=== PATIENT | male | born 1965 | race African-American/Black ===

== ENCOUNTER 2016-05-09 11:07 | Emergency (ER) | payer MEDICARE ==
[2016-05-09] MEDS ORDERED: PREDNISONE 20 MG TABLET PO ONE (11:22)
[2016-05-09] MEDS ORDERED: IPRATROPIUM/ALBUTEROL 0.5-2.5 MG/3 ML AMPUL NEB ONE ×2 (11:22→11:41)
--- NOTE | 2016-05-09 11:22 | ER Document Report ---
ED Medical Screen (RME) - General Stated Complaint: SHORTNESS OF BREATH,BACK PAIN Time seen by provider: 11:20 Mode of Arrival: Ambulatory Information source: Patient Notes: 51 yo male c/o wheezing, shortness of breath, hx asthma, sx onset since the holidays. Has nebulizer at home which is not help. also c/o right flank pain intermittently when he waks up in the morning. TRAVEL OUTSIDE OF THE [place] IN LAST 30 DAYS: No - Related Data Allergies/Adverse Reactions: azithromycin Allergy (Verified 05/09/16 11:20) Past Medical History - Past Medical History Cardiac Medical History: Reports: Hx Atrial Fibrillation, Hx Hypercholesterolemia, Hx Hypertension Pulmonary Medical History: Reports: Hx Asthma Physical Exam - Vital signs Vitals: Temp Pulse Resp BP Pulse Ox 98.0 F 64 18 103/69 98 05/09/16 11:18 05/09/16 11:18 05/09/16 11:18 05/09/16 11:18 05/09/16 11:18 Course - Vital Signs Vital signs: Temp Pulse Resp BP Pulse Ox 98.0 F 64 18 103/69 98 05/09/16 11:18 05/09/16 11:18 05/09/16 11:18 05/09/16 11:18 05/09/16 11:18
--- NOTE | 2016-05-09 11:52 | ER Document Report ---
ED General - General Chief Complaint: Back Pain Stated Complaint: SHORTNESS OF BREATH,BACK PAIN Time seen by provider: 11:49 Mode of Arrival: Ambulatory Information source: Patient Notes: 51-year-old male with a one-week history of wheezing and dyspnea on exertion and shortness of breath cough productive of yellow sputum. He reports patient was having breathing difficulty during the night that was keeping his wake and she insisted that he come in the hospital today. He also reports proximal one to 2 weeks of sharp pain in the right lower back that is intermittent. He also reports occasional urinary urgency and frequency and speculates that he might have urinary tract infection. He denies dysuria, fever, chills, nausea, vomiting, chest pain, or abdominal pain. He reports history of atrial fibrillation but says he's routinely in sinus rhythm since being started on Tikosyn by Dr. Mccray in [place]. He reports taking Eliquis but no other anticoagulation. Patient reports history of asthma and reports his current symptoms feel similar to that. He denies orthopnea or swelling to extremities. Physical Exam: General: Alert, appears well. HEENT: Normocephalic. Atraumatic. PERRLA. Extraocular movements intact. Oropharynx clear. Neck: Supple. Non-tender. Respiratory: No respiratory distress. He rhonchi bilaterally breath sounds equal no accessory muscle use Cardiovascular: Regular rate and rhythm. PMI not displaced Abdominal: Normal Inspection. Soft, non-tender. No distension. Normal Bowel Sounds. Back: Non-tender. No deformity or step off. Extremities: Moves all four extremities. 2+ pulses all extremities no edema no Homans sign bilaterally Neurological: Answers questions appropriate limitation clear speech clear was all extremities well. Psychological: Normal affect. Normal Mood. Skin: Warm. Dry. Normal color. TRAVEL OUTSIDE OF THE [place] IN LAST 30 DAYS: No - Related Data Allergies/Adverse Reactions: azithromycin Allergy (Verified 05/09/16 11:20) Past Medical History - General Information source: Patient - Social History Smoking Status: Never Smoker Chew tobacco use (# tins/day): No Frequency of alcohol use: None Drug Abuse: None Family History: CAD Patient has suicidal ideation: No Patient has homicidal ideation: No - Past Medical History Cardiac Medical History: Reports: Hx Atrial Fibrillation, Hx Hypercholesterolemia, Hx Hypertension Pulmonary Medical History: Reports: Hx Asthma Review of Systems - Review of Systems Constitutional: denies: Chills, Fever EENT: denies: Ear pain, Throat pain Cardiovascular: denies: Chest pain, Syncope, Dizziness Respiratory: Cough, Short of breath Gastrointestinal: denies: Abdominal pain, Diarrhea, Nausea, Vomiting Genitourinary: See HPI Musculoskeletal: Back pain Hematologic/Lymphatic: denies: Swollen glands Neurological/Psychological: denies: Weakness, Numbness Physical Exam - Vital signs Vitals: Temp Pulse Resp BP Pulse Ox 98.0 F 64 18 103/69 98 05/09/16 11:18 05/09/16 11:18 05/09/16 11:18 05/09/16 11:18 05/09/16 11:18 Course - Re-evaluation Re-evalutation: 05/09/16 13:41 Reevaluation after 2 nebulizer treatments and oral steroids shows clear lung mcgee bilaterally. Given the cough productive of yellow sputum for the past week believe there is a component of bronchitis and he will be discharged on Ceftin 500 twice a day for 10 days. Patient is allergic to Zithromax and 2 elective void for quinolones given his use of Tikosyn. He'll also receive Medrol Dosepak and asked to follow with his physician Dr. Callahan. 05/09/16 13:42 - Vital Signs Vital signs: Temp Pulse Resp BP Pulse Ox 98.0 F 64 18 103/69 98 05/09/16 11:18 05/09/16 11:18 05/09/16 11:18 05/09/16 11:18 05/09/16 11:18 Discharge - Discharge Clinical Impression: Acute bronchitis Qualifiers: Bronchitis organism: unspecified organism Qualified Code(s): J20.9 - Acute bronchitis, unspecified Condition: Stable Disposition: HOME, SELF-CARE Additional Instructions: Bronchitis You have acute bronchitis. This disease is an infection or inflammation of the air passageways in your lungs. Symptoms usually include cough, low grade fever, shortness of breath, and wheezing. The cough usually persists for a couple of weeks. Most cases of bronchitis get better without antibiotics. We prescribe antibiotics when we believe bacteria are damaging your airways, or if there's high risk the bronchitis will worsen into pneumonia. Increase your fluid intake. A cool mist humidifier may make your lungs more comfortable. An expectorant (cough medicine that loosens phlegm) can help. If you smoke, STOP!!! Recovery from bronchitis can be somewhat slow, but you should see improvement within a day or two. Repeated episodes of bronchitis may result in lung damage -- for example, chronic bronchitis, recurrent pneumonias, or emphysema. Call the doctor if you develop increasing fever, shortness of breath, chest pain, bloody sputum, or otherwise worsen. If you have not improved at all after several days, contact the physician. See Dr. Callahan next week for recheck Prescriptions: Cefuroxime Axetil [Ceftin 500 mg Tablet] 1 tab PO BID #20 tablet Methylprednisolone [Medrol Dosepack (4 mg/Tab) 21 Tab/Dosepak] 4 mg PO ASDIR PRN #21 tab.ds.pk PRN Reason:
[2016-05-09 13:10] LABS: APPEARANCE,URINE CLEAR; BILIRUBIN,URINE NEGATIVE (NEGATIVE); GLUCOSE, URINE NEGATIVE (NEGATIVE); KETONES,URINE NEGATIVE (NEGATIVE); LEUKOCYTE ESTERASE,URINE NEGATIVE (NEGATIVE); NITRITE,URINE NEGATIVE (NEGATIVE); PROTEIN,URINE NEGATIVE (NEGATIVE); URINE SPECIFIC GRAVITY 1.011; UROBILINOGEN,URINE NEGATIVE mg/dL (<2.0)
[2016-05-09 13:56] VITALS: BP 101/66
--- NOTE | 2016-05-09 22:58 | EKG REPORT ---
SEVERITY:- ABNORMAL ECG - SINUS RHYTHM FIRST DEGREE AV BLOCK LEFT ANTERIOR FASCICULAR BLOCK LATERAL INFARCT, ANTEROLATERAL INFARCT, AGE INDETERMINATE BORDERLINE T ABNORMALITIES, INFERIOR LEADS : Confirmed by: Kelly Sommers 09-May-2016 22:58:12
== END 2016-05-09 13:54 | disposition home or self-care (01) ==
LOC: ER 11:07
DX: J20.9 Acute bronchitis, unspecified (principal); M54.9 Dorsalgia, unspecified; R06.02 Shortness of breath; I48.91 Unspecified atrial fibrillation; E78.00 Pure hypercholesterolemia, unspecified; I10 Essential (primary) hypertension; Z88.3 Allergy status to other anti-infective agents
CPT/HCPCS: 93005; 94640 ×2; 99285; 87086; 81001; 71020; 93010; A9270 ×2; J7512; J7620

== ENCOUNTER 2017-03-21 11:58 | Emergency (ER) | payer OTHER, MEDICARE ==
[2017-03-21] MEDS ORDERED: GUAIFENESIN/D-METHORPHAN (200-20 MG) SYRUP 10 ML PO ONE (12:57)
[2017-03-21] MEDS ORDERED: METHYLPREDNISOLONE INJ 125 MG/2 ML SDV IM ONE (12:57)
[2017-03-21] MEDS ORDERED: IPRATROPIUM/ALBUTEROL 0.5-2.5 MG/3 ML AMPUL NEB ONE (12:57)
--- NOTE | 2017-03-21 13:00 | ER Document Report ---
ED General - General Chief Complaint: Edema Stated Complaint: COUGHING/ DIFFICULT BREATHING Time Seen by Provider: 03/21/17 12:27 Mode of Arrival: Ambulatory Information source: Patient Notes: Patient is a 51-year-old male with a history of asthma and congestive heart failure who presents to the ER today for shortness of breath 4 days that is worsening. Patient admits to productive cough and fevers at home. He also admits to bilateral lower extremity increase in swelling. He states that he does take 80 mg of Lasix and usually takes metolazone as well to "get the fluid off" but states that he is out of metolazone. He denies any chest pain. TRAVEL OUTSIDE OF THE [place] IN LAST 30 DAYS: No - Related Data Allergies/Adverse Reactions: azithromycin Allergy (Verified 03/21/17 12:01) Home Medications: Current Home Medications Apixaban [Eliquis 5 mg Tablet] 1 tab PO BID 03/21/17 [History] Carvedilol 25 mg PO DAILY 03/21/17 [History] Dofetilide [Tikosyn 500 Mcg Capsule] 500 mcg PO BID 03/21/17 [History] Furosemide [Lasix] 40 mg PO DAILY 03/21/17 [History] Metolazone 5 mg PO PRN PRN 03/21/17 [History] Montelukast Sodium 10 mg PO QPM 03/21/17 [History] Sacubitril/Valsartan [Entresto 24 mg-26 mg Tablet] 1 each PO BID 03/21/17 [ History] Past Medical History - General Information source: Patient - Social History Smoking Status: Never Smoker Chew tobacco use (# tins/day): No Frequency of alcohol use: None Drug Abuse: None Family History: CAD Patient has suicidal ideation: No Patient has homicidal ideation: No - Past Medical History Cardiac Medical History: Reports: Hx Atrial Fibrillation, Hx Hypercholesterolemia, Hx Hypertension Pulmonary Medical History: Reports: Hx Asthma Renal/ Medical History: Denies: Hx Peritoneal Dialysis Past Surgical History: Reports: Hx Cardiac Surgery - pacemaker, Hx Orthopedic Surgery - Right knee Review of Systems - Review of Systems Constitutional: See HPI EENT: See HPI Cardiovascular: See HPI Respiratory: See HPI Gastrointestinal: No symptoms reported Genitourinary: No symptoms reported Male Genitourinary: No symptoms reported Musculoskeletal: No symptoms reported Skin: See HPI Hematologic/Lymphatic: No symptoms reported Neurological/Psychological: No symptoms reported Physical Exam - Vital signs Vitals: Temp Pulse Resp BP Pulse Ox 98.9 F 87 18 122/87 H 98 03/21/17 12:01 03/21/17 12:01 03/21/17 12:01 03/21/17 12:01 03/21/17 12:01 - Notes Notes: PHYSICAL EXAMINATION: GENERAL: Well-appearing and in no acute distress. HEAD: Atraumatic, normocephalic. EYES: Pupils equal round and reactive to light, extraocular movements intact, sclera anicteric, conjunctiva are normal. ENT: ear canals without erythema or foreign body, TMs pearly islas with good bony landmarks, nares patent, oropharynx clear without exudates. Moist mucous membranes. Airway patent NECK: Normal range of motion, supple without lymphadenopathy LUNGS: mild wheezes in bilateral lower lung mcgee, no rales or rhonchi. HEART: Regular rate and rhythm without murmurs ABDOMEN: Soft, no tenderness. No guarding, no rebound BACK: no vertebral tenderness, normal ROM GI/: no CVA tenderness EXTREMITIES: Normal range of motion, 1+ pitting edema bilateral lower extremities. No cyanosis. NEUROLOGICAL: Cranial nerves grossly intact. Normal sensory/motor exams. PSYCH: Normal mood, normal affect. SKIN: Warm, Dry, normal turgor, no rashes or lesions noted Course - Re-evaluation Re-evalutation: 03/21/17 17:57 patient was given breathing treatment here and did improve, I will provide him antibiotic, cough medication and he is refill of metolazone for the pitting edema to his lower extremities. He was given a Solu-Medrol injection here for his wheezing. - Vital Signs Vital signs: Temp Pulse Resp BP Pulse Ox 98.2 F 71 16 116/79 99 03/21/17 13:49 03/21/17 13:49 03/21/17 13:49 03/21/17 13:49 03/21/17 13:49 Discharge - Discharge Clinical Impression: Edema extremities Asthma exacerbation Qualifiers: Asthma severity: unspecified severity Asthma persistence: unspecified Qualified Code(s): J45.901 - Unspecified asthma with (acute) exacerbation Condition: Stable Disposition: HOME, SELF-CARE Additional Instructions: Return immediately for any new or worsening symptoms. Follow up with primary care provider, call tomorrow to make followup appointment. Prescriptions: Hydrocodone Bit/Homatropine [Hycodan Syrup 5-1.5 mg/5 ml Ud Cup] 5 ml PO Q4HP PRN #120 ml PRN Reason: Doxycycline Hyclate 100 mg PO BID #14 tablet Metolazone 5 mg PO PRN PRN #15 tablet PRN Reason:
--- NOTE | 2017-03-21 13:01 | RADIOLOGY REPORT (SQ) ---
EXAM DESCRIPTION: CHEST PA/LAT COMPLETED DATE/TIME: 03/21/2017 12:35 pm REASON FOR STUDY: cough COMPARISON: Chest films 11/17/2015, 05/09/2016 EXAM PARAMETERS: NUMBER OF VIEWS: two views TECHNIQUE: Digital Frontal and Lateral radiographic views of the chest acquired. RADIATION DOSE: NA LIMITATIONS: none FINDINGS: LUNGS AND PLEURA: No opacities, masses or pneumothorax. No pleural effusion. MEDIASTINUM AND HILAR STRUCTURES: No masses or contour abnormalities. HEART AND VASCULAR STRUCTURES: Mild stable cardiomegaly. BONES: No acute findings. HARDWARE: Left-sided single lead pacemaker OTHER: No other significant finding. IMPRESSION: Stable mild cardiomegaly. Single lead pacemaker. No acute infiltrates. No pleural effusion TECHNICAL DOCUMENTATION: JOB ID: [id number] [employer]- All Rights Reserved
[2017-03-21 13:59] VITALS: BP 116/79
== END 2017-03-21 13:53 | disposition home or self-care (01) ==
LOC: ER 11:58
DX: R60.0 Localized edema (principal); J45.901 Unspecified asthma with (acute) exacerbation; R05 Cough; R06.02 Shortness of breath; I50.9 Heart failure, unspecified; Z79.899 Other long term (current) drug therapy
CPT/HCPCS: 94640; 99285; 96372; 87804; 71020; J2930; J3490; J7620

== ENCOUNTER 2018-07-08 08:26 | Emergency (ER) | payer OTHER, MEDICARE ==
[2018-07-08] MEDS ORDERED: IPRATROPIUM/ALBUTEROL 0.5-2.5 MG/3 ML AMPUL NEB ONE (09:11)
[2018-07-08] MEDS ORDERED: METHYLPREDNISOLONE INJ 125 MG/2 ML SDV IM ONE (09:11)
--- NOTE | 2018-07-08 09:12 | ER Document Report ---
ED Respiratory Problem - General Chief Complaint: Shortness Of Breath Stated Complaint: FLU SYMPTOMS Time Seen by Provider: 07/08/18 08:49 Mode of Arrival: Ambulatory Information source: Patient Notes: Patient is a 53-year-old male with a history of COPD, CHF who presents to the ER today for shortness of breath, wheezing, productive cough times 2 weeks worsening over the past couple of days. Patient states that he has lost weight and has not had any issues with his CHF, no swelling to the bilateral lower extremities, states that he is borderline diabetic but keeping it under control with diet. He states "I have been doing a lot better." He does have albuterol at home that has been helping, he admits to chills and fever but has not taken his temperature. TRAVEL OUTSIDE OF THE [place] IN LAST 30 DAYS: No - Related Data Allergies/Adverse Reactions: azithromycin Allergy (Verified 03/21/17 12:01) Past Medical History - General Information source: Patient - Social History Smoking Status: Never Smoker Family History: CAD Patient has suicidal ideation: No Patient has homicidal ideation: No - Past Medical History Cardiac Medical History: Reports: Hx Atrial Fibrillation, Hx Congestive Heart Failure, Hx Hypercholesterolemia, Hx Hypertension Pulmonary Medical History: Reports: Hx Asthma Endocrine Medical History: Reports: Hx Diabetes Mellitus Type 2 Renal/ Medical History: Denies: Hx Peritoneal Dialysis Past Surgical History: Reports: Hx Cardiac Surgery - pacemaker, Hx Orthopedic Surgery - Right knee Review of Systems - Review of Systems Constitutional: See HPI EENT: See HPI Cardiovascular: No symptoms reported Respiratory: See HPI Gastrointestinal: No symptoms reported Genitourinary: No symptoms reported Male Genitourinary: No symptoms reported Musculoskeletal: No symptoms reported Skin: No symptoms reported Hematologic/Lymphatic: No symptoms reported Neurological/Psychological: No symptoms reported Physical Exam - Vital signs Vitals: Temp Pulse Resp BP Pulse Ox 98.6 F 66 16 102/62 97 07/08/18 08:32 07/08/18 08:32 07/08/18 08:32 07/08/18 08:32 07/08/18 08:32 - Notes Notes: PHYSICAL EXAMINATION: GENERAL: Mildly ill-appearing, but in no acute distress. HEAD: Atraumatic, normocephalic. EYES: Pupils equal round and reactive to light, extraocular movements intact, sclera anicteric, conjunctiva are normal. ENT: Airway patent, ear canals without erythema or foreign body, TMs pearly islas with good bony landmarks, nares patent, oropharynx clear without exudates. Moist mucous membranes. NECK: Normal range of motion, supple without lymphadenopathy LUNGS: Mild expiratory wheezes, no rales or rhonchi. HEART: Regular rate and rhythm without murmurs ABDOMEN: Soft, no tenderness. No guarding, no rebound BACK: no vertebral tenderness, normal ROM GI/: no CVA tenderness EXTREMITIES: Normal range of motion, no pitting edema. No cyanosis. NEUROLOGICAL: Cranial nerves grossly intact. Normal sensory/motor exams. PSYCH: Normal mood, normal affect. SKIN: Warm, Dry, normal turgor, no rashes or lesions noted Course - Re-evaluation Re-evalutation: 07/08/18 10:39 X-ray negative for sign of pneumonia, patient doing better after breathing treatment here and Solu-Medrol was given IM. Pt will be given abx and cough medication. - Vital Signs Vital signs: Temp Pulse Resp BP Pulse Ox 98.8 F 66 20 102/78 94 07/08/18 10:20 07/08/18 08:32 07/08/18 10:12 07/08/18 10:12 07/08/18 10:12 Discharge - Discharge Clinical Impression: COPD exacerbation Condition: Stable Disposition: HOME, SELF-CARE Additional Instructions: Return immediately for any new or worsening symptoms. Follow up with primary care provider, call tomorrow to make followup appointment. Prescriptions: Hydrocodone Bit/Homatropine [Hycodan Syrup 5-1.5 mg/5 ml Ud Cup] 5 ml PO Q4HP PRN #120 ml PRN Reason: Cefdinir 300 mg PO TID #30 capsule
--- NOTE | 2018-07-08 09:45 | RADIOLOGY REPORT (SQ) ---
EXAM DESCRIPTION: CHEST 2 VIEWS COMPLETED DATE/TIME: 07/08/2018 9:24 am REASON FOR STUDY: cough, wheezing COMPARISON: 03/21/2017 NUMBER OF VIEWS: Two view TECHNIQUE: Frontal and lateral radiographic images of the chest acquired. LIMITATIONS: None. FINDINGS: LUNGS AND PLEURA: Chronic interstitial changes. No evidence of pulmonary edema or pneumon ia. MEDIASTINUM AND HILAR STRUCTURES: Stable heart size and mediastinal structures. HEART AND VASCULAR STRUCTURES: Cardiomegaly. Stable position of defibrillator. SUPPORT DEVICES: See above. BONES: No acute findings. OTHER: No other significant finding. IMPRESSION: No acute findings in the chest. TECHNICAL DOCUMENTATION: JOB ID: [id number] [employer]- All Rights Reserved Reading location - IP/workstation name: [email or web address]
[2018-07-08 10:20] VITALS: BP 102/78
== END 2018-07-08 10:20 | disposition home or self-care (01) ==
LOC: ER 08:26
DX: J44.1 Chronic obstructive pulmonary disease with (acute) exacerbation (principal); I50.9 Heart failure, unspecified; I48.91 Unspecified atrial fibrillation; E78.00 Pure hypercholesterolemia, unspecified; E11.9 Type 2 diabetes mellitus without complications; Z88.3 Allergy status to other anti-infective agents
CPT/HCPCS: 94640; 99284; 96372; 71046; J2930; J7620

== ENCOUNTER 2019-02-08 04:50 | Emergency (ER) | payer OTHER, MEDICARE ==
--- NOTE | 2019-02-08 05:26 | ER Document Report ---
ED Medical Screen (RME) - General Chief Complaint: Post Surgical Bleeding Stated Complaint: BLEEDING FROM SURGERY SITE Time Seen by Provider: 02/08/19 05:17 Notes: 53-year-old male who is 12 days postop AICD replacement at [facility] by Dr. Pierre, states that the site has been swelling like a hematoma for the past week or so, this morning while he was simply lying down the area suddenly started spontaneous bleeding. He denies scratching or injuring the area. He is not on any blood thinners. The bleeding is from the incision site where the sutures had been removed. Patient states he bled very heavily, he states he estimates he lost about half a pint of blood. He denies dizziness or passing out. He denies any other complaints at this time. TRAVEL OUTSIDE OF THE [place] IN LAST 30 DAYS: No - Related Data Allergies/Adverse Reactions: azithromycin Allergy (Verified 03/21/17 12:01) Past Medical History - Social History Chew tobacco use (# tins/day): No Drug Abuse: None - Past Medical History Cardiac Medical History: Reports: Hx Atrial Fibrillation, Hx Congestive Heart Failure, Hx Hypercholesterolemia, Hx Hypertension Pulmonary Medical History: Reports: Hx Asthma Endocrine Medical History: Reports: Hx Diabetes Mellitus Type 2 Renal/ Medical History: Denies: Hx Peritoneal Dialysis Past Surgical History: Reports: Hx Cardiac Surgery - pacemaker, Hx Orthopedic Surgery - Right knee Physical Exam - Vital signs Vitals: Temp Pulse Resp BP Pulse Ox 97.5 F 99 18 113/84 99 02/08/19 05:11 02/08/19 05:11 02/08/19 05:11 02/08/19 05:11 02/08/19 05:11 - Skin Skin Color: Other - There appears to be a large hematoma underneath the skin at the left pectoral muscle extending up towards the top of this where the new AICD wound is, current rapid bleeding from the wound site slightly over a centimeter in length. Course - Re-evaluation Re-evalutation: We obtained dressing materials and quick clot and this was quickly placed over the area, for now the bleeding has stopped. Placing IV, getting coagulation studies first. I have greeted and performed a rapid initial assessment of this patient. A comprehensive ED assessment and evaluation of the patient, analysis of test results and completion of the medical decision making process will be conducted by additional ED providers. - Vital Signs Vital signs: Temp Pulse Resp BP Pulse Ox 97.5 F 99 18 113/84 99 02/08/19 05:11 02/08/19 05:11 02/08/19 05:11 02/08/19 05:11 02/08/19 05:11
--- NOTE | 2019-02-08 05:58 | ER Document Report ---
ED General - General Chief Complaint: Post Surgical Bleeding Stated Complaint: BLEEDING FROM SURGERY SITE Time Seen by Provider: 02/08/19 05:17 TRAVEL OUTSIDE OF THE [place] IN LAST 30 DAYS: No - HPI Patient complains to provider of: bleeding from surg site Notes: Pleasant 53-year-old male presents with swelling of his left-sided chest at site of recent defibrillator exchange. Patient noticed the swelling earlier this week has increasing size to his left pectoral area. Contacted his cardiac doctor who did the insulation. Patient is scheduled to return to the operating room on Monday for revision due to the profound swelling. Last night patient noticed some increasing swelling again in the evening and bleeding from the surgical site. Patient states it grew additional 50%. Patient has pain in the area 6/10 throbbing in nature without radiation nothing makes it better or worse. Patient denies all the symptoms. - Related Data Allergies/Adverse Reactions: azithromycin Allergy (Verified 03/21/17 12:01) Past Medical History - Social History Smoking Status: Never Smoker Chew tobacco use (# tins/day): No Drug Abuse: None Family History: CAD Patient has suicidal ideation: No Patient has homicidal ideation: No - Past Medical History Cardiac Medical History: Reports: Hx Atrial Fibrillation, Hx Congestive Heart Failure, Hx Hypercholesterolemia, Hx Hypertension Pulmonary Medical History: Reports: Hx Asthma Endocrine Medical History: Reports: Hx Diabetes Mellitus Type 2 Renal/ Medical History: Denies: Hx Peritoneal Dialysis Past Surgical History: Reports: Hx Cardiac Surgery - pacemaker, Hx Orthopedic Surgery - Right knee Review of Systems - Review of Systems Notes: REVIEW OF SYSTEMS: CONSTITUTIONAL: -fevers, -chills EENT: -eye pain, -difficulty swallowing, -nasal congestion CARDIOVASCULAR: -chest pain, -syncope. RESPIRATORY: -cough, -SOB GASTROINTESTINAL: -abdominal pain, -nausea, -vomiting, -diarrhea GENITOURINARY: -dysuria, -hematuria MUSCULOSKELETAL: -back pain, -neck pain SKIN: -rash or skin lesions. HEMATOLOGIC: -easy bruising or bleeding. LYMPHATIC: -swollen, enlarged glands. NEUROLOGICAL: -altered mental status or loss of consciousness, -headache, - neurologic symptoms PSYCHIATRIC: -anxiety, -depression. ALL OTHER SYSTEMS REVIEWED AND NEGATIVE. Physical Exam - Vital signs Vitals: Temp Pulse Resp BP Pulse Ox 97.5 F 99 18 113/84 99 02/08/19 05:11 02/08/19 05:11 02/08/19 05:11 02/08/19 05:11 02/08/19 05:11 - Notes Notes: PHYSICAL EXAMINATION: GENERAL: Well-appearing, well-nourished and in no acute distress. HEAD: Atraumatic, normocephalic. EYES: Pupils equal round and reactive to light, extraocular movements intact, sclera anicteric, conjunctiva are normal. ENT: nares patent, oropharynx clear without exudates. Moist mucous membranes. NECK: Normal range of motion, supple without lymphadenopathy LUNGS: Breath sounds clear to auscultation bilaterally and equal. No wheezes rales or rhonchi. HEART: Regular rate and rhythm without murmurs ABDOMEN: Soft, nontender, normoactive bowel sounds. No guarding, no rebound. No masses appreciated. EXTREMITIES: Normal range of motion, no pitting or edema. No cyanosis. NEUROLOGICAL: Cranial nerves grossly intact. Normal speech, normal gait. Normal sensory and motor exams. PSYCH: Normal mood, normal affect. SKIN: Large Winston area of swelling left chest just inferior to his recent surgical incision site for his defibrillator placement. Extends his now covered with dried blood. Very firm to palpation. Course - Re-evaluation Re-evalutation: 02/08/19 08:43 Pleasant 53-year-old male presents with increasing swelling and bloody discharge from his recent admission of his left chest defibrillator. Patient is afebrile. Patient given IV opioid therapy for his pain. Patient's ultrasound finds a large 6.5 cm by approximately 6 cm complex mass. Presumed hematoma with communication to the outside with the bleeding. Consult patient's biology tutor at [facility]. Patient will be transferred to [facility] has been accepted by Dr. Andersen. Patient will then be taken to the surgical suite for revision of his pacemaker pocket. Discussed this with patient answer all questions. Patient accepts transfer. - Vital Signs Vital signs: Temp Pulse Resp BP Pulse Ox 97.5 F 99 18 113/84 99 02/08/19 05:11 02/08/19 05:11 02/08/19 05:11 02/08/19 05:11 02/08/19 05:11 - Laboratory Result Diagrams: 02/08/19 06:10 Laboratory results interpreted by me: 02/08/19 02/08/19 06:10 06:10 RBC 4.13 L Hgb 12.5 L RDW 14.3 H Lymph % (Auto) 10.8 L Seg Neutrophils % 79.3 H PT 15.5 H Discharge - Discharge Clinical Impression: Post-op pain Condition: Stable Disposition: [facility]
[2019-02-08 06:27] LABS: ABSOLUTE BASOPHILS # (AUTO) 0.1 10^3/uL (0.0-0.2); ABSOLUTE EOSINOPHILS # (AUTO) 0.1 10^3/uL (0.0-0.6); ABSOLUTE LYMPHOCYTES (AUTO) 1.1 10^3/uL (0.5-4.7); ABSOLUTE MONOCYTES (AUTO) 0.8 10^3/uL (0.1-1.4); ABSOLUTE NEUT (AUTO) 7.9 10^3/uL (1.7-8.2); BASOPHILS % (AUTO) 0.9 % (0-2); EOSINOPHILS % (AUTO) 1.3 % (0-6); HEMATOCRIT 38.6 % (37.9-51.0); HEMOGLOBIN 12.5 g/dL (13.5-17.0); LYMPHOCYTES % (AUTO) 10.8 % (13-45); MEAN CORPUSCULAR HEMOGLOBIN 30.2 pg (27.0-33.4); MEAN CORPUSCULAR HGB CONC 32.4 g/dL (32.0-36.0); MEAN CORPUSCULAR VOLUME 93 fl (80-97); MONOCYTES % (AUTO) 7.7 % (3-13); PLATELET COUNT 260 10^3/uL (150-450); RED BLOOD COUNT 4.13 10^6/uL (4.35-5.55); RED CELL DISTRIBUTION WIDTH 14.3 % (11.5-14.0); SEGMENTED NEUTROPHILS % (AUTO) 79.3 % (42-78); TOTAL CELLS COUNTED % (AUTO) 100 %; WHITE BLOOD COUNT 9.9 10^3/uL (4.0-10.5)
[2019-02-08 06:30] LABS: INTERNATIONAL RATION (INR) 1.22; PARTIAL THROMBOPLASTIN TIME 32.1 SEC (23.5-35.8); PROTHROMBIN TIME 15.5 SEC (11.4-15.4)
--- NOTE | 2019-02-08 07:41 | RADIOLOGY REPORT (SQ) ---
EXAM DESCRIPTION: US EXTREMITY MUSCULOSKELETAL LIMITED COMPLETED DATE/TME: 02/08/2019 05:58 CLINICAL HISTORY: 53 years, Male, left chest swelling COMPARISON: None. LIMITATIONS: None. FINDINGS: Targeted ultrasound described at the left chest wall in an area of likely device placement demonstrates a 5.5 x 5.8 x 1.5 cm complex fluid collection 0.9 cm deep from the skin surface in an area of indicated symptomatology. No significant associated vascularity. IMPRESSION: 5.8 cm complex fluid collection associated with the left pectoralis/chest wall may indicate a complex seroma, or chronic hematoma. Differential etiologies include infectious, inflammatory, and neoplastic processes. Consider current CR-x-ray chest correlation.
[2019-02-08] MEDS ORDERED: MORPHINE SULFATE 10 MG/ML INJ IV ONE (07:56)
[2019-02-08 11:35] VITALS: BP 102/83
== END 2019-02-08 11:41 | disposition short-term general hospital (02) ==
LOC: ER 04:50
DX: G89.18 Other acute postprocedural pain (principal); Z95.810 Presence of automatic (implantable) cardiac defibrillator; I48.91 Unspecified atrial fibrillation; I50.9 Heart failure, unspecified; E78.00 Pure hypercholesterolemia, unspecified; I11.0 Hypertensive heart disease with heart failure; E11.9 Type 2 diabetes mellitus without complications; Z88.3 Allergy status to other anti-infective agents
CPT/HCPCS: 99284; 96374; 36415; 85025; 85610; 85730; 76882; J2270